=== PATIENT | male | born 1970 | race Caucasian/White ===

== ENCOUNTER 2018-08-24 16:27 | Emergency (ER) ==
[2018-08-24 16:36] VITALS: BP 154/95; TEMP 97.5; BMI 33.8
[2018-08-24] MEDS ORDERED: ZOFRAN 4 MG/2 ML IM STA (16:51)
[2018-08-24] MEDS ORDERED: MORPHINE 4 MG/ML SYRINGE IM STA (16:51)
--- NOTE | 2018-08-24 16:55 | ED.PDOC ---
General ED Provider: Dr. SANCHO GARCIA Chief Complaint: Back Pain Stated Complaint: low back pain Time Seen by Physician: 16:30 Mode of Arrival: Walk-In Information Source: Patient Exam Limitations: No limitations Nursing and Triage Documentation Reviewed and Agree: Yes Does patient meet sepsis criteria?: No System Inflammatory Response Syndrome: Not Applicable Sepsis Protocol: For patient's 13 years and over: Temp is 96.8 and below OR 101 and greater Pulse >90 BPM Resp >20/minute Acutely Altered Mental Status Are patient's symptoms suggestive of a new infection, such as: -Pneumonia -Skin, Soft Tissue -Endocarditis -UTI -Bone, Joint Infection -Implantable Device -Acute Abdominal Infection -Wound Infection -Meningitis -Blood Stream Catheter Infection -Unknown Musculoskeletal Complaint Exam - Back Pain Complaint/Exam Mechanism of Injury: Reports: No known trauma Onset/Duration: chronic issue Symptoms Are: Still present Timing: Intermittent Episodes Lasting: Weeks Initial Severity: Moderate Current Severity: Moderate Location: Reports: Discrete Character: Reports: Aching, Throbbing, Spasmodic, Stiffness Aggravating: Reports: Movements, Lifting, Bending, Walking Alleviating: Reports: Rest, Position Associated Signs and Symptoms: Denies: Swelling, Redness, Bruising, Fever, Weakness, Numbness, Tingling, Abdominal pain, Flank pain, Bladder incontinence, Bowel incontinence, Weight loss, Pain with weight bearing Related History: Reports: Similar episode TAD Risk Factors: Reports: Smoking. Denies: Hypertension, CHF, Conn. Tissue Disorder, Marfan's Syndrome, Family history AAA Risk Factors: Reports: Smoking. Denies: Prior AAA, Primary relative AAA, Hypertension, Atherosclerosis Cauda Equina Risk Factors: Denies: Saddle anesthesia, Perineal anesthesia, Bladder dysfuntion, Bowel dysfunction, Lower extremity numbness, Lower extremity weakness Epidural Abcess Risk Factors: Reports: None Related Surgical History: Reports: None Focal Tenderness: No Paraspinal Muscle Tenderness: No Paraspinal Muscle Spasm: No Scoliosis: No Lordosis: No Kyphosis: No SLR Test: Right Negative, Left Negative Hip Motion Testing Pain: Right Negative, Left Negative Focal Weakness: Present: None Focal Sensory Loss: Present: None Gait: Present: Normal Differential Diagnoses: Strain, Sprain Review of Systems - Review Of Systems Constitutional: Reports: No symptoms Eyes: Reports: No symptoms Ears, Nose, Mouth, Throat: Reports: No symptoms Respiratory: Reports: No symptoms Cardiac: Reports: No symptoms GI: Reports: No symptoms : Reports: No symptoms Musculoskeletal: Reports: Back pain Skin: Reports: No symptoms Neurological: Reports: No symptoms Endocrine: Reports: No symptoms Hematologic/Lymphatic: Reports: No symptoms All Other Systems: Reviewed and Negative Past Medical History - Past Medical History Previously Healthy: Yes Endocrine: Reports: None Cardiovascular: Reports: None Respiratory: Reports: None Hematological: Reports: None Gastrointestinal: Reports: None Genitourinary: Reports: None Neuro/Psych: Reports: None Musculoskeletal: Reports: Back Pain Cancer: Reports: None - Surgical History General Surgical History: Reports: None - Family History Family History: Reports: None - Social History Smoking Status: Current every day smoker, Heavy tobacco smoker Hx Substance Use: No Alcohol Screening: Occasionally Physical Exam - Physical Exam Appearance: Well-appearing, No pain distress, Well-nourished Eyes: TREY, EOMI, Conjunctiva clear ENT: Ears normal, Nose normal, Oropharynx normal Respiratory: Airway patent, Breath sounds clear, Breath sounds equal, Respirations nonlabored Cardiovascular: RRR, Pulses normal, No rub, No murmur GI/: Soft, Nontender, No masses, Bowel sounds normal, No Organomegaly Musculoskeletal: Normal strength, ROM intact, No edema, No calf tenderness Skin: Warm, Dry, Normal color Neurological: Sensation intact, Motor intact, Reflexes intact, Cranial nerves intact, Alert, Oriented Psychiatric: Affect appropriate, Mood appropriate Critical Care Note - Critical Care Note Total Time (mins): 0 Course - Course Orders, Labs, Meds: Orders Category Date Time Status Morphine Sulfate [Morphine 4 mg/ml Syringe] MEDS 08/24/18 16:51 Stat 4 mg IM ONCE STA Ondansetron HCl/Pf [Zofran 4 mg/2 ml] MEDS 08/24/18 16:51 Stat 4 mg IM ONCE STA Medications Discontinued Medications Generic Name Dose Route Start Last Admin Trade Name Freq PRN Reason Stop Dose Admin Morphine Sulfate 4 mg 08/24/18 16:51 Morphine 4 Mg/Ml Syringe IM 08/24/18 16:52 ONCE STA Ondansetron HCl 4 mg 08/24/18 16:51 Zofran 4 Mg/2 Ml IM 08/24/18 16:52 ONCE STA Vital Signs: Temp Pulse Resp BP Pulse Ox 08/24/18 16:29 97.5 F L 96 H 20 154/95 H 93 L Departure - Departure Time of Disposition: 16:54 Disposition: HOME SELF-CARE Discharge Problem: Backache Low back pain Qualifiers: Chronicity: unspecified Back pain laterality: midline Sciatica presence: without sciatica Qualified Code(s): M54.5 - Low back pain Instructions: Acute Low Back Pain (ED), Lower Back Exercises (ED) Condition: Good Pt referred to PMD for follow-up: Yes IPMP verified?: No Additional Instructions: Please call your Family Physician as soon as possible to schedule a follow-up appointment. Prescriptions: Hydrocodone Bit/Acetaminophen [[place] 10-325] 1 each PO Q6HR #7 tablet Allergies/Adverse Reactions: Allergies No Known Allergies Allergy (Unverified 08/24/18 16:36) Home Medications: Ambulatory Orders Hydrocodone Bit/Acetaminophen [[place] 10-325] 1 each PO Q6HR #7 tablet 08/24/18
== END 2018-08-24 17:36 | disposition home or self-care (01) ==
LOC: ED 16:27
DX: M54.5 Low back pain (principal); F17.210 Nicotine dependence, cigarettes, uncomplicated
CPT/HCPCS: 96372; 99282

== ENCOUNTER 2018-12-01 08:00 | Outpatient (RCR) ==
--- NOTE | 2018-11-21 14:42 | RS.OPPTDN ---
Subjective Date of Note: 11/21/18 Visit #: 2 Number of visits approved by Insurance: pending Date of Evaluation: 11/07/18 Payer Source: Medicaid Treatment Diagnosis: Chronic Low back pain Current Subjective/complaints:: He reports prolonged sitting or walkinmg increases his back and leg pain.He changes positions frequently for relief. Pain Assessment - Pain Description Pain Location: lumbar / LE's Pain Description: Radiating, Dull, Aching, Chronic Current Pain Intensity: 5-6 /10 - Treatment Modality: Electrical Stim Unattended Parameters/Method Applied: 20 mins. high volt ,channel 1 and 2 @ 190 pv to lumbar Patient Position: Supine - Heat/Cryotherapy Treatment: Hot Pack (concurrent with e-stim ) Interventions - Exercise/Activities/Manual Therapy Exercises/Activities: 25 mins. total of SKTC,DKTC,90/90 hamstring stretches using contract-relax,piriformis stretches,LTR in hooklying.Patient education for pain management. Total minutes of Exercise: 25 Manual Therapy: na Total minutes of Manual Therapy: 0 HOME EXERCISE PROGRAM: SKTC,DKTC,piriformis stretches,LTR,hamstring stretches - Charges Timed Code Treatment Minutes: 25 Total Treatment Time: 45 Procedures billed for this date of service:: hp,e-stim,ex 2 Assessment: Patient has moderate hams. tightness bilaterally ,but this improves after the stretches.The exercises do notelevate the existing pain .He understands to change positions frequently for pain and pressure relief.He is attentive to HEP recommendations. Patient Education: Body/Joint mechanics, Home Exercise Program, Activity Modification, Education of Plan of Care Short Term Goals Goal #1: Patient I and compliant to HEP. Goal to be met by: 11/22/18 Progress towards Goal:: Progressing Goal #2: SLR bilaterally to 45 degrees. Goal to be met by: 11/22/18 Goal #3: Right LE symptoms decreased to infrequent. Goal to be met by: 11/22/18 Residential Goals Goal #1: Patient knows HEP and to continue to maintain LOF at D/C. Goal to be met by: 12/18/18 Progress towards goal: Progressing Goal #2: Score on LE functional scale improved to 24. Goal to be met by: 12/18/18 Goal #3: Pt. to amb. community distanceswith minimal LBP. Goal to be met by: 12/18/18 Goal #4: Patient able to stand as needed with minimal LBP. Goal to be met by: 12/18/18 Plan Dates of Residential Goals: 12/18/18 Expiration date of current Insurance Approval:: pending PLAN: Cont. skilled PT to reduce / eliminate LBP ,improve overall mobility.
--- NOTE | 2018-11-24 10:56 | RS.OPPTDN ---
Subjective Date of Note: 11/24/18 Visit #: 3 Number of visits approved by Insurance: pending Date of Evaluation: 11/07/18 Payer Source: Medicaid Treatment Diagnosis: Chronic Low back pain Current Subjective/complaints:: Patient reports the back pain is about the same today.He has to walk across town to come to therapy ,making it difficult for him to assess his pain. Pain Assessment - Pain Description Pain Location: lumbar Pain Description: Dull, Aching Current Pain Intensity: 6 - Treatment Modality: Electrical Stim Unattended Parameters/Method Applied: 20 mins. high volt,channel 1 and 2 @ 180 pv to lumbar. Patient Position: Supine - Heat/Cryotherapy Treatment: Hot Pack (concurrent with e-stim) Interventions - Exercise/Activities/Manual Therapy Exercises/Activities: 20 mins. total of SKTC,DKTC,90/90 hamstring stretches using contract-relax,piriformis stretches,LTR in hooklying.Patient education for pain management. Total minutes of Exercise: 20 Manual Therapy: na HOME EXERCISE PROGRAM: SKTC,DKTC,piriformis stretches,LTR,hamstring stretches - Charges Timed Code Treatment Minutes: 20 Total Treatment Time: 40 Procedures billed for this date of service:: hp,e-stim,ex Assessment: Patient does not reports increased pain with exercises today,but is noted to have tremors in both LE's when in hooklying position,but not present when resting in supine or sidelying.Recommended for him to let his DrAndreia know about the leg tremors.He has normal gait pattern when exiting the nic today. Patient Education: Education of diagnosis, Body/Joint mechanics, Home Exercise Program, Home Safety, Activity Modification, Education of Plan of Care Patient demonstrates compliance with HEP?: Yes Short Term Goals Goal #1: Patient I and compliant to HEP. Goal to be met by: 11/22/18 Progress towards Goal:: Progressing Goal #2: SLR bilaterally to 45 degrees. Goal to be met by: 11/22/18 Progress towards Goal:: Progressing Goal #3: Right LE symptoms decreased to infrequent. Goal to be met by: 11/22/18 Intermediate Goals Goal #1: Patient knows HEP and to continue to maintain LOF at D/C. Goal to be met by: 12/18/18 Progress towards goal: Progressing Goal #2: Score on LE functional scale improved to 24. Goal to be met by: 12/18/18 Goal #3: Pt. to amb. community distanceswith minimal LBP. Goal to be met by: 12/18/18 Progress towards goal: No Change Goal #4: Patient able to stand as needed with minimal LBP. Goal to be met by: 12/18/18 Plan Dates of Coach [employer] Goals: 12/18/18 Expiration date of current Insurance Approval:: 12/18/18 PLAN: Cont. skilled PT to reduce/eliminate LBP.
--- NOTE | 2018-11-28 09:22 | RS.OPPTDN ---
Subjective Date of Note: 11/28/18 Visit #: 4 Number of visits approved by Insurance: pending Date of Evaluation: 11/07/18 Payer Source: Medicaid Treatment Diagnosis: Chronic Low back pain Current Subjective/complaints:: Patient reports elevated pain into both legs and low back today. Pain Assessment - Pain Description Pain Location: lumbar and LE's Pain Description: Radiating, Dull, Aching, Chronic Pain Description: tingling into both legs this AM Current Pain Intensity: 7/10 - Treatment Modality: Ultrasound Parameters/Method Applied: 10 mins. @ 1.5 w/cm2 ,cont. mode. Patient Position: Left Sidelying - Heat/Cryotherapy Treatment: Hot Pack (20 mins. prior to US) Interventions - Exercise/Activities/Manual Therapy Exercises/Activities: 25 mins. total of SKTC,DKTC,90/90 hamstring stretches using contract-relax,piriformis stretches,LTR in hooklying. Total minutes of Exercise: 25 Manual Therapy: na Total minutes of Manual Therapy: 0 HOME EXERCISE PROGRAM: SKTC,DKTC,piriformis stretches,LTR,hamstring stretches - Charges Timed Code Treatment Minutes: 35 Total Treatment Time: 55 Procedures billed for this date of service:: hp,US,ex 2 Assessment: Patient has no elevated pain today with exercises ,less guarded with trunk rotation .He has no noted tremors in the LE's ,as compared to last session.He is attentive to recommendations of the therapy staff.He has a normal gait pattern when exiting the clinic today. Patient Education: Body/Joint mechanics, Home Exercise Program Patient demonstrates compliance with HEP?: Yes Short Term Goals Goal #1: Patient I and compliant to HEP. Goal to be met by: 11/22/18 Progress towards Goal:: Progressing Goal #2: SLR bilaterally to 45 degrees. Goal to be met by: 11/22/18 Progress towards Goal:: Progressing Goal #3: Right LE symptoms decreased to infrequent. Goal to be met by: 11/22/18 Progress towards Goal:: Progressing Conditioning Coach Goals Goal #1: Patient knows HEP and to continue to maintain LOF at D/C. Goal to be met by: 12/18/18 Progress towards goal: Progressing Goal #2: Score on LE functional scale improved to 24. Goal to be met by: 12/18/18 Goal #3: Pt. to amb. community distanceswith minimal LBP. Goal to be met by: 12/18/18 (longer distances elevate the pain still) Progress towards goal: Progressing Goal #4: Patient able to stand as needed with minimal LBP. Goal to be met by: 12/18/18 Progress towards goal: Progressing Plan Dates of Halfway Goals: 12/18/18 Expiration date of current Insurance Approval:: 12/18/18 PLAN: Cont. skilled PT to reduce /elminate LBP.
--- NOTE | 2018-12-01 09:00 | RS.QUICKDC ---
Discharge from PT Date of Discharge: 12/01/18 Number of Visits: 5 Reason for Discharge: No progress made.
--- NOTE | 2018-12-01 09:04 | RS.OPPTDN ---
Subjective Date of Note: 12/01/18 Visit #: 5 Number of visits approved by Insurance: pending Date of Evaluation: 11/07/18 Payer Source: Medicaid Treatment Diagnosis: Chronic Low back pain Current Subjective/complaints:: Patient reports temporary relief only from the therapy.He feels the back is slightly better,but the legs have "nerve pain". Pain Assessment - Pain Description Pain Location: lumbar and both LE's. Pain Description: Dull, Aching, Chronic Current Pain Intensity: 5-7 - Heat/Cryotherapy Treatment: Hot Pack (20 mins. prior to ex.) Interventions - Exercise/Activities/Manual Therapy Exercises/Activities: 30 mins. total of SKTC,DKTC,90/90 hamstring stretches using contract-relax,piriformis stretches,LTR in hooklying.Added heelslides ,sLR 's ,SAQ,hams curls for HEP . Total minutes of Exercise: 30 Manual Therapy: na Total minutes of Manual Therapy: 0 HOME EXERCISE PROGRAM: SKTC,DKTC,piriformis stretches,LTR,hamstring stretches - Charges Timed Code Treatment Minutes: 30 Total Treatment Time: 50 Procedures billed for this date of service:: hp,ex 2 Assessment: Patient only has temporary relief .He understands the HEP is to be continued as tolerated ,is aware of D/C today. Patient Education: Home Exercise Program, Education of Plan of Care Patient demonstrates compliance with HEP?: Yes Short Term Goals Goal #1: Patient I and compliant to HEP. Goal to be met by: 11/22/18 Progress towards Goal:: Met Goal #2: SLR bilaterally to 45 degrees. Goal to be met by: 11/22/18 Progress towards Goal:: Partially Met (elicits pain) Goal #3: Right LE symptoms decreased to infrequent. Goal to be met by: 11/22/18 Progress towards Goal:: No Change Snf Goals Goal #1: Patient knows HEP and to continue to maintain LOF at D/C. Goal to be met by: 12/18/18 Progress towards goal: Met Goal #2: Score on LE functional scale improved to 24. Goal to be met by: 12/18/18 Progress towards goal: No Change Goal #3: Pt. to amb. community distanceswith minimal LBP. Goal to be met by: 12/18/18 (longer distances elevate the pain still) Progress towards goal: No Change Goal #4: Patient able to stand as needed with minimal LBP. Goal to be met by: 12/18/18 Progress towards goal: No Change Plan Dates of Logistics Lead Goals: 12/18/18 Expiration date of current Insurance Approval:: 12-18-18 PLAN: D/C
== END 2018-12-16 23:59 ==
PROVIDERS: ATTEND Family Medicine
DX: M54.5 Low back pain (principal); G89.29 Other chronic pain

== ENCOUNTER 2018-12-25 12:38 | Outpatient (CLI) | END 2018-12-25 12:39 | disposition home or self-care (01) | LOC: RHC-LAB 12:38 → FCC-LAB 12:39 | PROVIDERS: ATTEND Family Medicine | DX: B35.1 Tinea unguium (principal) | CPT/HCPCS: 36415; 87101 ==